=== PATIENT | male | born 1970 | race African-American/Black ===

== ENCOUNTER 2021-12-11 13:31 | Emergency (ER) | payer OTHER ==
[2021-12-11 14:19] LABS: Bilirubin Neg (Negative); Blood, Urine 50 (Negative); Clarity Slightly Cloudy (Clear); Glucose, Urine (Dipstick) Normal (Negative); Ketone, Urine Negative (Negative); Leukocyte 500 (Negative); Nitrite Negative (Negative); Protein, Urine (Dipstick) 30 mg/dl (Neg-Trace); Specific Gravity, Urine 1.015 (1.002-1.036); Urobilinogen Normal mg/dL (Less than 2)
[2021-12-11 14:26] LABS: #Eosinphils 0.1 10x3/uL (0.0-0.5); #Neutrophils 6.4 10x3/uL (1.5-8.4); %Basophils 0.2 % (0.0-2.0); %Eosinophils 0.6 % (0.0-6.0); %Lymphocytes 11.8 % (18.0-47.0); %Monocytes 11.6 % (0.0-10.0); %Neutrophils 75.4 % (40.0-75.0); Hemoglobin 10.5 g/dL (13.5-17.5); Mean Corpuscular HGB CONC 32.1 g/dL (32.0-36.0); Mean Corpuscular Volume 77.9 fl (81.2-95.1); Mean Platelet Volume 8.9 fl (7.4-10.4); Platelet Count 311 10x3/uL (150-450); RBC Distribution Width 14.6 % (11.5-14.5); White Blood Cell (WBC) Count 8.5 10x3/uL (3.5-10.5)
[2021-12-11 14:37] LABS: Bacteria/HPF 1+ HPF (None Seen); RBC/HPF 0-3 HPF (0-3); Squamous Epithelial 0-3 HPF (0-3); WBC/HPF 21-50 HPF (0-3)
[2021-12-11 14:42] LABS: ALT (SGPT) 14 U/L (8-55); AST (SGOT) 15 U/L (5-34); Albumin 4.1 g/dL (3.5-5.0); Alkaline Phosphatase 77 U/L (40-110); Anion Gap 18 mmol/L (10-20); BUN (Urea Nitrogen) 10 mg/dL (8.9-20.6); Bilirubin, Total 1.1 mg/dL (0.2-1.2); Calc. Creatinine Clearance 0 mL/min (70-130); Calcium 8.7 mg/dL (7.8-10.44); Carbon Dioxide 23 mmol/L (22-29); Chloride 101 mmol/L (98-107); Globulin 3.2 g/dL (2.4-3.5); Glucose 110 mg/dL (70-105); Lipase 16 U/L (8-78); Potassium 4.3 mmol/L (3.5-5.1); Protein, Total 7.3 g/dL (6.0-8.3); Sodium 138 mmol/L (136-145)
[2021-12-11] MEDS ORDERED: cefTRIAXone\\ROCEPHIN 1 GM VIAL ONE (14:45)
[2021-12-11 16:16] LABS: SARS-CoV-2 NAA Rapid Test Not Detected (NotDetected)
== END 2021-12-11 15:28 ==
LOC: CSHERS 13:31
DX: N30.90 Cystitis, unspecified without hematuria (principal); D64.9 Anemia, unspecified; I11.0 Hypertensive heart disease with heart failure; I50.9 Heart failure, unspecified; E11.51 Type 2 diabetes mellitus with diabetic peripheral angiopathy without gangrene
CPT/HCPCS: 74176; 80053; 81003; 81015; 83690; 85025; 87077; 87086; 87186; 96374; J0696; U0002

== ENCOUNTER 2022-06-11 11:04 | Observation (INO) | payer OTHER ==
[2022-06-11 11:55] LABS: #Eosinphils 0.4 10x3/uL (0.0-0.5); #Monocytes 0.8 10x3/uL (0.0-1.1); #Neutrophils 2.6 10x3/uL (1.5-8.4); %Basophils 0.6 % (0.0-2.0); %Eosinophils 5.7 % (0.0-6.0); %Lymphocytes 45.8 % (18.0-47.0); %Monocytes 11.2 % (0.0-10.0); %Neutrophils 36.6 % (40.0-75.0); Hemoglobin 11.2 g/dL (13.5-17.5); Mean Corpuscular HGB CONC 31.2 g/dL (32.0-36.0); Mean Corpuscular Hemoglobin 25.6 pg (27.0-33.0); Mean Corpuscular Volume 82.2 fl (81.2-95.1); Mean Platelet Volume 9.2 fl (7.4-10.4); Platelet Count 371 10x3/uL (150-450); RBC Distribution Width 14.2 % (11.5-14.5); Red Blood Cell (RBC) Count 4.37 10x6/uL (4.32-5.72)
[2022-06-11 12:05] LABS: ALT (SGPT) 13 U/L (8-55); AST (SGOT) 18 U/L (5-34); Albumin 4.2 g/dL (3.5-5.0); Alkaline Phosphatase 88 U/L (40-110); Anion Gap 16 mmol/L (10-20); BUN (Urea Nitrogen) 10 mg/dL (8.9-20.6); Bilirubin, Total 0.6 mg/dL (0.2-1.2); Calc. Creatinine Clearance 0 mL/min (70-130); Carbon Dioxide 23 mmol/L (22-29); Chloride 104 mmol/L (98-107); Estimated GFR 107; Globulin 3.3 g/dL (2.4-3.5); Glucose 136 mg/dL (70-105); Potassium 3.8 mmol/L (3.5-5.1); Protein, Total 7.5 g/dL (6.0-8.3); Sodium 139 mmol/L (136-145)
[2022-06-11 12:30] LABS: SARS-CoV-2 NAA Rapid Test Not Detected (NotDetected)
[2022-06-11] MEDS ORDERED: Famotidine/PF 20 mg/2ml Vial ONE (13:10)
[2022-06-11] MEDS ORDERED: Ondansetron PF 4 MG/2 ML Vial IVP PRN (14:02)
[2022-06-11] MEDS ORDERED: Ondansetron ODT 4 MG TAB PO PRN (14:02)
[2022-06-11] MEDS ORDERED: Acetaminophen 325 MG TAB PO PRN (14:02)
[2022-06-11] MEDS ORDERED: Dextrose 50% Abboject 50 ML SYRINGE SLOW IVP PRN (14:27)
[2022-06-11] MEDS ORDERED: Dextrose 5% in Water 1,000 ML IV PRN (14:27)
[2022-06-11] MEDS ORDERED: HumaLOG 300 UNITS/3 ML VIAL SC PRN (14:27)
[2022-06-11] MEDS: diphenhydrAMINE 12.5 MG/5 ML UDCUP PO SCH (18:01)
[2022-06-11] MEDS: HumaLOG 300 UNITS/3 ML VIAL SC PRN (18:01)
[2022-06-12] MEDS: diphenhydrAMINE 12.5 MG/5 ML UDCUP PO SCH ×2 (01:15→08:40)
[2022-06-12 04:52] LABS: #Monocytes 0.6 10x3/uL (0.0-1.1); #Neutrophils 6.4 10x3/uL (1.5-8.4); %Monocytes 7.7 % (0.0-10.0); %Neutrophils 76.8 % (40.0-75.0); Hemoglobin 10.9 g/dL (13.5-17.5); Mean Corpuscular HGB CONC 30.7 g/dL (32.0-36.0); Mean Corpuscular Hemoglobin 24.9 pg (27.0-33.0); Mean Corpuscular Volume 81.1 fl (81.2-95.1); Mean Platelet Volume 9.5 fl (7.4-10.4); Platelet Count 357 10x3/uL (150-450); RBC Distribution Width 14.2 % (11.5-14.5); Red Blood Cell (RBC) Count 4.38 10x6/uL (4.32-5.72); White Blood Cell (WBC) Count 8.4 10x3/uL (3.5-10.5)
[2022-06-12 05:21] LABS: Anion Gap 13 mmol/L (10-20); BUN (Urea Nitrogen) 12 mg/dL (8.9-20.6); Calc. Creatinine Clearance 263 mL/min (70-130); Calcium 9.4 mg/dL (7.8-10.44); Carbon Dioxide 23 mmol/L (22-29); Chloride 103 mmol/L (98-107); Estimated GFR 109; Glucose 137 mg/dL (70-105); Potassium 4.3 mmol/L (3.5-5.1); Sodium 135 mmol/L (136-145)
[2022-06-12 06:51] VITALS: BMI 57.4
[2022-06-12] MEDS: Sodium Chloride 0.9% 1,000 ML IV SCH ×2 (07:15→08:41)
[2022-06-12] MEDS ORDERED: predniSONE 20 MG TAB PO SCH (08:00)
[2022-06-12] MEDS ORDERED: Amlodipine 5 MG TAB PO SCH ×2 (09:00)
[2022-06-12] MEDS ORDERED: Famotidine/PF 20 mg/2ml Vial SLOW IVP SCH (09:00)
[2022-06-12] MEDS ORDERED: Enoxaparin Sodium 40 MG/0.4 ML SYRINGE SC SCH (09:00)
[2022-06-12] MEDS: HumaLOG 300 UNITS/3 ML VIAL SC PRN (11:54)
[2022-06-12 12:01] VITALS: BP 141/84; TEMP 97.5
== END 2022-06-12 13:59 | disposition home or self-care (01) ==
LOC: CSHERS 11:04 → CSHTELE 16:14
PROVIDERS: ADMIT Family Medicine; ATTEND Family Medicine
DX: T78.3XXA Angioneurotic edema, initial encounter (principal); I11.0 Hypertensive heart disease with heart failure; I50.9 Heart failure, unspecified; E11.9 Type 2 diabetes mellitus without complications; I73.9 Peripheral vascular disease, unspecified; E66.01 Morbid (severe) obesity due to excess calories; Z20.822 Contact with and (suspected) exposure to COVID-19; Z88.8 Allergy status to other drugs, medicaments and biological substances; Z68.43 Body mass index [BMI] 50.0-59.9, adult; Z79.82 Long term (current) use of aspirin; Z79.84 Long term (current) use of oral hypoglycemic drugs; Z79.899 Other long term (current) drug therapy
CPT/HCPCS: 36415; 36416; 71045; 80048; 80053; 83880; 84484; 85025; 93005; 94760; 96372; 96374; G0378; J1650; J1815; J7050; J7512; Q0163; S0028; U0002